=== PATIENT | female | born 1950 ===

== ENCOUNTER 2018-07-03 07:05 | Emergency (ER) | payer MEDICARE ==
[2018-07-03 07:18] VITALS: BP 154/79
--- NOTE | 2018-07-03 07:53 | ED ---
Respiratory - HPI Summary HPI Summary: 67 yo WF p/w cough with yellow green sputum, pleuritic CP and nighttime wheezing heard by pt's , but has no h/o asthma or COPD. This has progressed to from URI sx 1.5 week ago. HAs had bronchitis in 2017 and feels similar to that episode. Denies f/c - History of Current Complaint Chief Complaint: UCRespiratory Stated Complaint: URI Time Seen by Provider: 07/03/18 07:23 Hx Obtained From: Patient Onset/Duration: Lasting Days Initial Severity: Moderate Current Severity: Moderate Pain Intensity: 0 Character: Cough (Productive) - Allergy/Home Medications Allergies/Adverse Reactions: Allergies Allergy/AdvReac Type Severity Reaction Status Date / Time No Known Allergies Allergy Verified 07/03/18 07:18 Home Medications: Home Medications Dextromethorphan HBr [Tussin Cough] 15 mg PO DAILY PRN 07/03/18 [History Confirmed 07/03/18] Estrogens, Conjugated [Premarin] 0.3 mg PO DAILY 07/03/18 [History Confirmed ] Levothyroxine Sodium [Levoxyl] 112 mcg PO DAILY 07/03/18 [History Confirmed ] Multivitamin [Multivitamins] 1 cap PO DAILY 07/03/18 [History Confirmed 07/03/18 ] Pravastatin Sodium 20 mg PO DAILY 07/03/18 [History Confirmed 07/03/18] guaiFENesin [Mucinex] 600 mg PO DAILY PRN 07/03/18 [History Confirmed 07/03/18] PMH/Surg Hx/FS Hx/Imm Hx Endocrine/Hematology History: Reports: Hx Thyroid Disease - Surgical History Surgery Procedure, Year, and Place: C-sections, hysterectomy, ovarian cyst, deviated septum Infectious Disease History: No Infectious Disease History: Denies: Traveled Outside the [place] in Last 30 Days - Social History Alcohol Use: Occasionally Substance Use Type: Reports: None Smoking Status (MU): Never Smoked Tobacco Review of Systems - ROS Summary Review of Systems Summary: Constitutional: Negative Skin: Negative Eyes: Negative ENT: Negative Cardiovascular: Negative Respiratory: cough with sputum, pleuritic CP Gastrointestinal: Negative Genitourinary: Negative Musculoskeletal: Negative Neurological: Negative Psychological: Normal All Other Systems Reviewed And Are Negative: Yes All Other Systems Reviewed And Are Negative: Yes Physical Exam - Summary Physical Exam Summary: Vital Signs Reviewed: Yes Appearance: Positive: No Pain Distress Skin: Positive: Warm Head/Face: Positive: Normal Head/Face Inspection Eyes: Positive: Normal ENT: Positive: Normal ENT inspection Neck: Positive: Supple Respiratory/Lung Sounds: Positive: Diffuse rhonchi, Negative: Rales, Wheezes Cardiovascular: Positive: Normal, RRR, S1, S2 Abdomen Description: Positive: Nontender Musculoskeletal: Positive: Normal Neurological: Positive: Normal, CN Intact II-III Psychiatric: Positive: Normal, Affect/Mood Appropriate Triage Information Reviewed: Yes Vital Signs On Initial Exam: Initial Vitals Temp Pulse Resp BP Pulse Ox 37.8 C 72 16 154/79 95 07/03/18 07:14 07/03/18 07:14 07/03/18 07:14 07/03/18 07:14 07/03/18 07:14 Diagnostics - Vital Signs Vital Signs Temp Pulse Resp BP Pulse Ox 07/03/18 07:14 37.8 C 72 16 154/79 95 - Laboratory Lab Statement: Any lab studies that have been ordered have been reviewed, and results considered in the medical decision making process. Disposition - Diagnoses Provider Diagnoses: Bronchitis Discharge - Sign-Out/Discharge Documenting (check all that apply): Patient Departure All imaging exams completed and their final reports reviewed: Yes - Discharge Plan Condition: Stable Disposition: HOME Prescriptions: Azithromycin TAB* [Zithromax TAB (Z-DENISHA) 250 mg #6 tabs] 2 tab PO .TODAY, THEN 1 DAILY #1 denisha Guaifenesin/Dextromethorphan [Mucinex Dm ER 600-30 mg Tablet] 1 each PO BID 7 Days #14 tab.er.12h Patient Education Materials: Acute Bronchitis (ED) - Billing Disposition and Condition Condition: STABLE Disposition: Home
== END 2018-07-03 07:53 | disposition home or self-care (01) ==
LOC: UCEAST 07:05
DX: J40 Bronchitis, not specified as acute or chronic (principal)
CPT/HCPCS: 99202; G0463